=== PATIENT | male | born 1975 | race African-American/Black ===

== ENCOUNTER 2021-09-01 03:09 | Emergency (ER) | payer SELFPAY ==
[~2021-09-01] VITALS: Ht 172.7 cm; Wt 88.5 kg
--- NOTE | 2021-09-01 03:24 | NUR ---
Called warehouse insulation worker for sitter, no sitter at the time, will monitor pt.
[2021-09-01 03:38] LABS: HEMATOCRIT 35.5 % (36.7-47.1); MEAN CORPUSCULAR HEMOGLOBIN 27.5 uug (23.8-33.4); MEAN CORPUSCULAR VOLUME 80.6 fL (73.0-96.2); PLATELET COUNT (AUTO) 328 K/uL (152-348)
[2021-09-01 03:41] LABS: CARBON DIOXIDE 31 mmol/L (21-32); CHLORIDE 98 mmol/L (98-107); CREATININE 0.7 mg/dL (0.6-1.3); GLUCOSE 267 mg/dL (74-106); POTASSIUM 3.7 mmol/L (3.5-5.1); UREA NITROGEN, BLOOD 10 mg/dL (7-18)
--- NOTE | 2021-09-01 03:45 | NUR ---
Pt in bed asleep.
[2021-09-01 03:46] LABS: ALANINE AMINOTRANSFERASE 42 U/L (16-63); ALKALINE PHOSPHATASE 85 U/L (50-136); ASPARTATE AMINOTRANSFERASE 16 U/L (15-37); BILIRUBIN,DIRECT 0.1 mg/dL (0.0-0.2); BILIRUBIN,TOTAL 0.3 mg/dL (0.2-1.0); CREATINE KINASE, TOTAL 140 U/L (39-308)
[2021-09-01 03:48] LABS: ACETAMINOPHEN < 2.0 ug/mL (10-30)
[2021-09-01 03:49] LABS: ETHANOL < 3 MG/DL (0-0)
--- NOTE | 2021-09-01 03:56 | NUR ---
Pt searched for contraband by security, placed on suicide precaution, belongings at nursing station.
--- NOTE | 2021-09-01 04:00 | NUR ---
Pt in bed, no distress.
--- NOTE | 2021-09-01 04:10 | NUR ---
Pt provided urine sample, sent to lab.
--- NOTE | 2021-09-01 04:15 | NUR ---
Pt in bed
[2021-09-01 04:28] LABS: *BILIRUBIN,URIN NEGATIVE (NEGATIVE); *BLOOD, URINE NEGATIVE (NEGATIVE); *CLARITY,URINE CLEAR (CLEAR); *COLOR,URINE YELLOW (YELLOW); *KETONES,URINE NEGATIVE (NEGATIVE); LEUKOCYTE ESTERASE ,URINE NEGATIVE (NEGATIVE); NITRITE, URINE NEGATIVE (NEGATIVE); PH,URINE 6.5 (5.0-8.0); UGLUCOSE 2+ (NEGATIVE)
--- NOTE | 2021-09-01 04:30 | NUR ---
Pt in bed, no distress
--- NOTE | 2021-09-01 04:39 | NUR ---
Called Maria C Dorman for anthony maddox, did not answer, attempted to leave message, mailbox full. [phone].
[2021-09-01 04:40] LABS: *AMPHETAMINE, URINE POSITIVE (NEGATIVE); *CANNABINOID, URINE NEGATIVE (NEGATIVE); *COCCAINE, URINE NEGATIVE (NEGATIVE); *OPIATE, URINE NEGATIVE (NEGATIVE); *PHENCYCLIDINE SCREEN,URINE NEGATIVE (NEGATIVE)
--- NOTE | 2021-09-01 04:45 | NUR ---
Pt in bed no distress noted
[2021-09-01 04:55] LABS: BACTERIA,URINE NONE SEEN /HPF (NONE SEEN); RBC,URINE NONE SEEN /HPF (0-3); SQUAMOUS EPITHELIAL CELL,UR FEW /HPF (NONE SEEN); WBC,URINE 0-3 /HPF (0-3)
--- NOTE | 2021-09-01 05:00 | NUR ---
Pt in bed
--- NOTE | 2021-09-01 05:07 | NUR ---
Called Maria C for follow up, did not answer.
--- NOTE | 2021-09-01 05:15 | NUR ---
Pt in bed no distress noted.
--- NOTE | 2021-09-01 05:30 | NUR ---
Pt in bed
--- NOTE | 2021-09-01 05:38 | NUR ---
Called Chiquita DIEGOW, left voicemail.
--- NOTE | 2021-09-01 05:38 | NUR ---
Raquel harrison in [facility] - 09/01/21 at 0606 by BASILIO Will Cardenas LCSW.
--- NOTE | 2021-09-01 05:45 | NUR ---
pt in bed
--- NOTE | 2021-09-01 06:00 | NUR ---
pt in bed
--- NOTE | 2021-09-01 06:06 | NUR ---
Called Chiquita DIEGOW, left voicemail.
--- NOTE | 2021-09-01 06:15 | NUR ---
pt in bed
--- NOTE | 2021-09-01 06:30 | NUR ---
pt in bed
--- NOTE | 2021-09-01 06:45 | NUR ---
pt in bed
--- NOTE | 2021-09-01 07:00 | NUR ---
pt in bed, stated he is no longer suicidal
[2021-09-01] MEDS ORDERED: OLAN10TA3 PO (07:04)
--- NOTE | 2021-09-01 07:13 | NUR ---
Patient discharged in stable condition. Written and verbal after care instructions given. Patient verbalizes understanding of instructions and stated he is no longer suicidal. Stressed follow up or return to ER for worsening s/s.
[2021-09-01 07:14] VITALS: BP 130/79
== END 2021-09-01 07:14 | disposition home or self-care (01) ==
LOC: ER 03:12
DX: F15.129 Other stimulant abuse with intoxication, unspecified (principal); R45.851 Suicidal ideations; F25.9 Schizoaffective disorder, unspecified; Z91.14 Patient's other noncompliance with medication regimen; Z59.00 Homelessness unspecified; Z20.822 Contact with and (suspected) exposure to COVID-19; D64.9 Anemia, unspecified
CPT/HCPCS: 36415; 85025; 93005; A4663; G0480

== ENCOUNTER 2022-10-17 20:14 | Emergency (ER) | payer MEDICARE, OTHER ==
[~2022-10-17] VITALS: Ht 182.9 cm; Wt 86.2 kg
[~2022-10-17 20:14] MED LIST: OLAN10TA3 PO
[2022-10-17] MEDS ORDERED: IV NORMAL SALINE 1000 ML BAG IV ONE (20:30)
[2022-10-17 20:52] LABS: HEMATOCRIT 40.4 % (36.7-47.1); MEAN CORPUSCULAR HEMOGLOBIN 25.4 uug (23.8-33.4); MEAN CORPUSCULAR VOLUME 77.8 fL (73.0-96.2); PLATELET COUNT (AUTO) 305 K/uL (152-348)
[2022-10-17 21:00] LABS: SITE, VBG LEFT RADIAL; VENT MODE, VBG ROOM AIR
[2022-10-17 21:09] LABS: ALANINE AMINOTRANSFERASE 15 U/L (16-63); ALKALINE PHOSPHATASE 94 U/L (50-136); ASPARTATE AMINOTRANSFERASE 14 U/L (15-37); BILIRUBIN,DIRECT 0.3 mg/dL (0.0-0.2); BILIRUBIN,TOTAL 1.1 mg/dL (0.2-1.0); CARBON DIOXIDE 29 mmol/L (21-32); CHLORIDE 97 mmol/L (98-107); CREATINE KINASE, TOTAL 150 U/L (39-308); CREATININE 0.8 mg/dL (0.6-1.3); GLUCOSE 280 mg/dL (74-106); POTASSIUM 3.5 mmol/L (3.5-5.1); TOTAL PROTEIN, SERUM 8.3 g/dL (6.4-8.2); UREA NITROGEN, BLOOD 9 mg/dL (7-18)
[2022-10-17 21:12] LABS: ACETAMINOPHEN < 2.0 ug/mL (10-30)
[2022-10-17 21:14] LABS: ETHANOL < 3 MG/DL (0-0)
[2022-10-17 23:19] LABS: *BILIRUBIN,URIN NEGATIVE (NEGATIVE); *BLOOD, URINE NEGATIVE (NEGATIVE); *CLARITY,URINE CLEAR (CLEAR); *COLOR,URINE YELLOW (YELLOW); *KETONES,URINE 2+ (NEGATIVE); LEUKOCYTE ESTERASE ,URINE NEGATIVE (NEGATIVE); NITRITE, URINE NEGATIVE (NEGATIVE)
[2022-10-17 23:23] LABS: UGLUCOSE 3+ (NEGATIVE)
[2022-10-17 23:33] LABS: *AMPHETAMINE, URINE NEGATIVE (NEGATIVE); *CANNABINOID, URINE POSITIVE (NEGATIVE); *COCCAINE, URINE NEGATIVE (NEGATIVE); *OPIATE, URINE NEGATIVE (NEGATIVE); *PHENCYCLIDINE SCREEN,URINE NEGATIVE (NEGATIVE)
[2022-10-17 23:37] LABS: BACTERIA,URINE NONE SEEN /HPF (NONE SEEN); SQUAMOUS EPITHELIAL CELL,UR FEW /HPF (NONE SEEN); WBC,URINE NONE SEEN /HPF (0-3)
[2022-10-17 23:38] LABS: RBC,URINE 0-3 /HPF (0-3)
--- NOTE | 2022-10-18 06:00 | NUR ---
Patient selectively answering question, being uncooperative. Patient was given ACI by the ERMD and staff member but refuse to get off the bed stating "I just want to sleep." No distress noted. [facility] gena called to help D/C patient.
--- NOTE | 2022-10-18 06:20 | NUR ---
Patient given written and verbal discharge instructions. Patient verbalizes understanding of instructions. Patient is ambulatory with steady gait. Refuses offer of nursing home placement. Patient given list of available shelters in surrounding area. Patient refused to sign ACI and homeless waiver form.
--- NOTE | 2022-10-18 06:30 | NUR ---
Patient was placed on wheelchair and left ER with ruth avery escorting patient out. When patient was outside of ER, patient was observe by ruth wheeling himself on side walk rapidly to steal wheelchair. [facility] was called.
== END 2022-10-18 07:05 | disposition home or self-care (01) ==
LOC: ER 20:35
DX: F15.10 Other stimulant abuse, uncomplicated (principal); F12.90 Cannabis use, unspecified, uncomplicated; R94.31 Abnormal electrocardiogram [ECG] [EKG]; D72.829 Elevated white blood cell count, unspecified; Z59.00 Homelessness unspecified; F20.9 Schizophrenia, unspecified; Z91.14 Patient's other noncompliance with medication regimen; R82.4 Acetonuria; E87.1 Hypo-osmolality and hyponatremia; E10.65 Type 1 diabetes mellitus with hyperglycemia; G40.909 Epilepsy, unspecified, not intractable, without status epilepticus; F19.10 Other psychoactive substance abuse, uncomplicated; Z79.899 Other long term (current) drug therapy
CPT/HCPCS: 80076; 80048; 81001; 82009; 82550; 85025; 84484; 36415; 93005; 71045; 70450; 82803; 99285; 96360; 80299; 80320; 80307; 36600; J7040; A4663; C1758; G0480